=== PATIENT | female | born 1965 | race Caucasian/White ===

== ENCOUNTER 2019-05-08 23:01 | Inpatient (IN) | payer OTHER ==
[~2019-05-08] VITALS: Ht 157.4 cm; Wt 118.8 kg
[~2019-05-08 23:01] MED LIST: AMBIEN 10 MG TA10 MG PO; AMITRIPTYLINE H50 M2 PO; BENTYL10 MG PO; BYETTA PEN 51 PENIN1 SC; BYSTOLIC10 MG PO; CELEXA40 MG PO; CLONAZEPAM PO; CLONIDINE HCL0.2 M2 PO; DIOVAN HCT 1601 EAC1 PO; DUETACT 30-2 M1 EACH PO; FISHOIL PO; INSULIN PEN SC; L-LYSINE1000 MG PO; LORTAB PO; NORVASC10 MG PO; PROTONIX40 M2 PO
[2019-05-08] MEDS ORDERED: MS CONTIN 30 MG30 MG PO (23:14)
[2019-05-08] MEDS ORDERED: NEURONTIN 300300 M1 PO (23:16)
[2019-05-08] MEDS ORDERED: NOVOLOG100 UNIT/1 SUBQ (23:18)
[2019-05-08] MEDS ORDERED: DOXYCYCLINE 10100 MG PO (23:18)
[2019-05-08] MEDS ORDERED: IPRAT-ALBUT 0.5-3 ML (23:20)
[2019-05-08] MEDS ORDERED: ASPIR-TRIN325 MG PO (23:21)
[2019-05-08] MEDS ORDERED: INVOKANA100 MG PO ×2 (23:22→23:31)
[2019-05-08] MEDS ORDERED: VITAMIN D1000 UNI1 PO (23:24)
[2019-05-08] MEDS ORDERED: CETIRIZINE HCL10 MG PO (23:24)
[2019-05-08] MEDS ORDERED: NYAMYC15 GM TOP (23:25)
[2019-05-08] MEDS ORDERED: PERCOCET 10-321 EACH PO (23:27)
[2019-05-08] MEDS ORDERED: LEXAPRO20 MG PO (23:29)
[2019-05-08] MEDS ORDERED: AMBIEN 5 MG TABL5 M1 PO (23:30)
--- NOTE | 2019-05-08 23:34 | NUR ---
ADMISSION MEDS. PT VERY POOR HISTORIAN AND NOT ABLE TO STATE THE NAME OF HER SLIDING SCALE INSULIN OR HER LONG ACTING INSULIN. PT ALSO NOT ABLE TO GIVE ACCURATE DOSE OF KLONOPIN 0.2 MGS BID. PT ALSO NOT ABLE TO GIVE DOSE OF LATUDA FOR HER BIPOLAR. NURSE CALLED PHARMACY AND ASKED FOR FAX OF MEDICATIONS FOR CLARIFICATION, RIP ON [facility].
[2019-05-08 23:40] VITALS: BP 170/97
--- NOTE | 2019-05-09 00:18 | NUR ---
ADMISSION NOTE CONTINUED. TALKED WITH DR GORMAN, WAITING TO CLARIFY HOME MEDS WITH PHARMACY IN THE AM UNTIL ANY FURTHER ORDERS OBTAINED. WILL HAVE DAY NURSE F/U WITH NAUN AT [facility] [phone].
--- NOTE | 2019-05-09 01:10 | NUR ---
ARRIVED TO [address] [place] [address] VIA EMS AND TRANSFERRED FROM [facility] TO BED 524A BY EMS AND [facility] STAFF. PT STANDS AND PIVOTS, TOOK THE 2 STEP DISTANCE WITH A GREAT DEAL OF GROANING AND DISCOMFORT. DENIES SI OR PLAN. DENIES WITHOLDING PAIN MEDS FROM SELF TO SAVE AND TAKE ALL AT ONCE TO HURT SELF. DENIES HI.
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
[2019-05-09 09:03] VITALS: BP 187/99
[2019-05-09 09:08] VITALS: BP 187/99
--- NOTE | 2019-05-09 09:59 | NUR ---
0700: Report rec from noc shift, care assumed. [id number]: Self transferred from bed to w/c, staff stand by assist. To DR via w/c, alert, oriented to name, place and time, feeds self, appetite good, consumed 100% of meal. SS Lispro Insulin 3 units given, glucose 160. B/P 187/99, Ravi, HOSPITAL RECRUITER here, update given and new orders entered. Pt attended 0900 exercise therapy group, participation noted, pt cooperative with staff, denies SI at this time. Norvasc 10mg po initiated per order.
[2019-05-09 13:15] VITALS: BP 154/90
[2019-05-09] MEDS ORDERED: TOPROL XL25 MG PO (15:35)
[2019-05-09] MEDS ORDERED: ZANAFLEX4 MG PO (15:39)
[2019-05-09] MEDS ORDERED: ZOCOR20 MG PO (15:42)
[2019-05-09] MEDS ORDERED: VALSARTAN-HCTZ1 EAC2 PO (15:48)
[2019-05-09] MEDS ORDERED: PROTONIX40 M1 PO (15:50)
[2019-05-09] MEDS ORDERED: CARAFATE 1 GM TA1 G1 PO (15:52)
--- NOTE | 2019-05-09 16:28 | NUR ---
APPEARS FLUSHED SITTING IN DAYROOM-UNABLE TO OBTAIN BP MANUALLY CUFF IS TO SMALL- MACHINE READING 189/104-PULSE 95. DENIES VISUAL DISTURBANCE OR HEADACHE-DOES STATE CHRONIC PAIN IS "BETTER" RATING A 6 ON 1-10 SCALE. DOES STATE FEELS "VERY NERVOUS" UPSET BECAUSE MOTHER HAS ELMER ARRIVES TO SEE HER PLANNED. CLONIDINE 0.1MG GIVEN PO PRN FOR HTN-CLINICIAN CONTACTED AND ADDITIONAL ORDERS PENDING
[2019-05-09 19:13] VITALS: BP 190/89
[2019-05-09 19:59] VITALS: BP 190/89
--- NOTE | 2019-05-09 20:10 | NUR ---
ASSUMED CARE @ 19:15. SITTING IN A W/C IN THE DAY ROOM. COMPLIANT WITH ASSESSMENT. REPORTS ADJUSTING TO HOSPITAL ROUTINE, HAS BEEN UP ALL DAY WITH PT, GROUP AND TOOK A SHOWER AND A SHAMPOO. HRRR, LUNGS CTA, ABD NORMOACTIVE. LAST BM WAS EARLY THIS MORNING. NO BM DURING THE DAY. FSBS 148 @ HS. WILL CONTINUE TO MONITOR Q 12 FOR PATIENT SAFETY.
[2019-05-09 23:00] VITALS: BP 190/89
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
--- NOTE | 2019-05-10 06:42 | NUR ---
VS 191/94 86 97 20 96.9 @ 04:30 HYDDROXAZINE HCL 25 GIVEN @ 4:45 FOR HYPERTENSION. HUSSAIN MCINTOSH CALLED @ 0440 AND ADVISED OF PTS BLOOD PRESSURE. SHE SAID TO CHECK VS IN 1 HOUR. VS 189/89 89 20 98% @ 0545 NORVASC GIVEN @ 0545 PER VINCE. WILL PASS ONTO DAY NURSE TO CHECK BLOOD PRESSURE AND ASSESS. SLEEP HOURS 4 HOURS OVERNIGHT.
[2019-05-10 07:20] VITALS: BP 182/104
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
[2019-05-10 09:42] VITALS: BP 180/105
--- NOTE | 2019-05-10 11:06 | NUR ---
Nutrition: Pt seen for high BMI >40 (48 kg/m2; class III high risk obesity). Admitted for major depressive disorder w/ hx HTN, diabetes. RD met with pt in day area while pt was visiting w/ family member. She reports understanding of the diabetic diet - currently on carb controlled diet while hospitalized. States BG in good range, but having more blood pressure issues. BG ranged 127-160 mg/dl per 05/09. Educated on lower sodium needs and identified high Na foods to limit/avoid. Pt declined further diet ed at this time. On SSI, plus MVI with minerals. Will keep as low nutrition risk and remain available if pt becomes interested in further diet ed at later point in time.
[2019-05-10 11:13] VITALS: BP 182/104
--- NOTE | 2019-05-10 11:21 | NUR ---
ADM HYDROLAZINE 10MG PO FOR ELEVATED BP 182/104. PT SWEATING. PT STATED SHE GETS HOT, MOTHER VISITING AND STATED SHE IS HOT AT HOME. PT SITTING IN RECLINER.
[2019-05-10 16:23] VITALS: BP 181/106
--- NOTE | 2019-05-10 16:34 | NUR ---
ADM HYDROXAZINE 25MG PO FOR ANXIETY.
--- NOTE | 2019-05-10 17:01 | NUR ---
SW schedule a family meeting for pt family on 05/11/19 at 1400.
--- NOTE | 2019-05-10 17:06 | EKG ---
[address] [place] [address] ELECTROCARDIOGRAM REPORT Name: DOUGIE KANGLY Humberto Room #: 52-A ADM IN M.R.#: [id number] ������������������ Admission: 05/08/19 ������������������ Attend Phys: Neo Dale MD Discharge: ������������������ Date of : 63 Report #: [id number] ����������������������������������������������������������������� [id number] THIS REPORT FOR: //name// [facility] Test Date: 2019-05-10 Test Time: 10:39:07 Pat Name: YUNIEL KANG Department: Room: [facility] A Gender: F Joint Sealer: Blossom LUNDBERG : 1965 Requested By: Estuardo Diaz Order Number: [id number] MD: Jairo Cano Measurements Intervals Fisher Rate: 84 P: 62 MS: 133 QRS: 7 QRSD: 91 T: 32 QT: 382 QTc: 452 Interpretive Statements Sinus rhythm Poor R wave progression Compared to ECG 11/19/2009 08:25:40 No significant changes Electronically Signed On 05-10-2019 17:05:58 CDT by Jairo Cano [email or web address] ��������������������������������������������� <ELECTRONICALLY SIGNED> ���������������������������������������� By: Jairo Cano MD, [facility] ��������������������������������������������� 05/10/19 1705 1039 1039 Jairo Cano MD, [facility] /EPI
--- NOTE | 2019-05-10 17:52 | NUR ---
ADM HYDROLAZINE 10MG FOR BP 181/106.
[2019-05-10 19:31] VITALS: BP 161/95
--- NOTE | 2019-05-10 21:35 | NUR ---
Care assumed of patient at 1915: Patient alert and oriented x4. Patient calm, pleasant and cooperative. Patient started to report some anxiety prior to bed. Reports that she has not slept well the last 2 nights and is worried about being able to sleep tonight. Patient provided PRN Hydroxyzine prior to bed per patient request. Patient took HS medication without difficulty. Ate 100% HS snack. Patient interacting well with staff and peers. Patient having good insight on past behaviors and need to improve self worth. Reports that she wants to stop saying "I can't" and "I'm sorry" so much. Accucheck completed, insulin provided. Received scheduled pain medication which reports as giving partial pain relief. Reports that her acceptable pain level is a 6/10. Patient denies SI/HI/AH/VH. No aggression or agitation observed. Patient was able to report to bed and appears to be resting well at this time.
[2019-05-11 07:55] VITALS: BP 167/97
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
[2019-05-11] MEDS ORDERED: COZAAR 25 MG TA25 M1 PO (11:55)
[2019-05-11] MEDS ORDERED: NORVASC10 MG PO (11:55)
[2019-05-11] MEDS ORDERED: PERCOCET 10-321 EACH PO (11:56)
[2019-05-11] MEDS ORDERED: NEURONTIN 300300 M1 PO (11:57)
[2019-05-11] MEDS ORDERED: LATUDA20 MG PO (11:57)
[2019-05-11] MEDS ORDERED: MULTIVITAMINS PO (11:58)
[2019-05-11 13:35] VITALS: BP 1676/97
[2019-05-11 13:43] VITALS: BP 1676/97
[2019-05-11 14:34] VITALS: BP 1676/97
--- NOTE | 2019-05-11 15:10 | NUR ---
Patient Name: YUNIEL KANG Admission Date: 05/08/19 DISCHARGE PLAN: Pt will d/c home with parents. Care Assessment: Pt was assessed by dr. torres, and diagnosed with Major Depressive Disorder Level II Assessment: None Transportation: pt will be transported by her parents Special Instructions/Notes: Pt will need continuance care with php program, and Ot/PT Therapy. SW schedule appointment with [facility]. DISCHARGE TO FACILITY: Facility: Phone: Fax: Address: Contact Name: Phone: PCP: TIMOTEO Psychiatrist: [facility] on May 15, 2019 at 9:00am.
--- NOTE | 2019-05-11 16:11 | NUR ---
ASSUMED CARE AT 0700 THIS MORNING. PT. FAMILY HERE TO TALK WITH STAFF. PT. FAMILY RECEIVED ALL DISCHARGE PAPERS. TEACHING COMPLETED ABOUT DISCHARGE PLANS. ALL MED LISTS, DISCHARGE PAPERS, SCRIPTS SENT WITH FAMILY. THEY LEFT THE HOSPITAL ALONG WITH ALL PT. BELONGINGS. PT. TAKEN PER W/C TO THE FRONT OF THE HOSPITAL AND PLACED IN THE FAMILY VEHICLE. THEY DROVE AWAY.
--- NOTE | 2019-05-12 16:55 | D ---
[facility] [place] [address] DISCHARGE SUMMARY Name: YUNIEL KANG Room #: 524A-[facility] IN ..#: [id number] Admission: 05/08/19 ������������������ Attend Phys: Neo Dale MD Discharge: 05/11/19 ������������������ Date of : 63 Report #: [id number] THIS REPORT FOR: //name// CC: [facility] physician/PCP Neo Dale DATE OF SERVICE: 05/11/2019 INPATIENT PSYCHIATRIC DISCHARGE SUMMARY ATTENDING PHYSICIAN: Estuardo Diaz DO BRAZER FURNACE: Rhianna Bright backed up by a supervising hospitalist, Dr. Banuelos. DISCHARGE DIAGNOSES: Bipolar 1 disorder, most recent episode depressed, moderate degree of opioid dependence, substance use disorder for opioid to moderate degree. DISCHARGE PLAN: Her mother's home. Psychiatric care provided at [facility]. She sees and Priyanka as her supervisor case loading. Psychotherapy is recommended. Also, she should see Dr. Luna, her primary care physician for hypertension and follow up in 2 weeks. COMORBIDITIES: Include right shoulder pain, chronic pain syndrome, hypertension, diabetes. DISCHARGE DIET: Diabetic 1800 calorie. ACTIVITY LEVEL: Encouraged to be increased. The patient should pursue physical therapy as well. I had meant to give her a separate script for that and admittedly forgot, so she is welcome to contact me through a hospital glycerine plant operator for followup on that. ALLERGIES: INCLUDE NALBUPHINE AND BUTORPHANOL. REASON FOR ADMISSION: The patient is transferred from [facility]. HOSPITAL COURSE: I went ahead and prescribed for the patient of Percocet at scheduled intervals. The patient was given a strict 4-1/2 day course of this on discharge as she is seeing her pain management physician, Dr. Jose F Beltran, this coming Tuesday. Laboratories were mostly done at [facility]. Blood sugars ran from the 130s to the 190s. The patient during the course of hospitalization did have improved affect, ability to cope, was future oriented. [facility] [address] [place] [address] DISCHARGE SUMMARY Name: YUNIEL KANG Room #: 52-[facility] IN ..#: [id number] Admission: 05/08/19 ������������������ Attend Phys: Neo Dale MD Discharge: 05/11/19 ������������������ Date of : 63 Report #: [id number] VITAL SIGNS: On the day of discharge as follows: Temperature 36.9, pulse 84, respirations 18, BP 167/97, so it is trending down. MENTAL STATUS EXAMINATION: This is a well-developed, morbidly obese with BMI of 48 female wearing glasses. Attention fair. Concentration fair. Speech is normal in rate, volume, tone. Thought process is linear and goal oriented. Thought content focused on getting to her pain management appointment this coming Tuesday. No psychomotor agitation. No psychomotor retardation. Memory is not formally tested. Insight is fair. Judgment is fair. PROGNOSIS: Prognosis for this patient is guarded given that she is on disability, has severe persistent mental illness, is dependent on opioids and has had some recent misuse of opioids, so the patient was warned on her using excessive amounts of opioids during a period of time is likely violation of her pain management contract with Dr. Beltran, so they could be substituted. ��������������������������������������������� <ELECTRONICALLY SIGNED> ���������������������������������������� By: Estuardo Diaz DO ��������������������������������������������� 05/12/19 [id number] Estuardo Diaz DO /nt
== END 2019-05-11 16:15 | disposition home or self-care (01) | DRG 885 ==
LOC: SBH 23:01
PROVIDERS: ADMIT Psychiatry & Neurology Psychiatry
DX: F31.9 Bipolar disorder, unspecified (principal); R45.851 Suicidal ideations; F11.20 Opioid dependence, uncomplicated; E11.9 Type 2 diabetes mellitus without complications; I10 Essential (primary) hypertension; F41.9 Anxiety disorder, unspecified; G89.4 Chronic pain syndrome; M54.30 Sciatica, unspecified side; Z88.8 Allergy status to other drugs, medicaments and biological substances; Z90.710 Acquired absence of both cervix and uterus; Z90.721 Acquired absence of ovaries, unilateral; Z90.49 Acquired absence of other specified parts of digestive tract; Z88.1 Allergy status to other antibiotic agents; Z79.899 Other long term (current) drug therapy
CPT/HCPCS: 10880